=== PATIENT | male | born 1950 | race Caucasian/White ===

== ENCOUNTER 2016-05-07 09:09 | Day surgery (SDC) | payer OTHER ==
--- NOTE | 2016-04-30 10:07 | PAT Medication Instructions ---
Service Date Apr 30, 2016. Current Home Medication List Amlodipine (Norvasc), 10 MG PO QAM Benazepril (Lotensin), 40 MG PO QAM Glipizide (Glucotrol), 1 TAB PO BID Hydrochlorothiazide (Hctz), 1 TAB PO QAM Simvastatin (Zocor), 1 TAB PO HS Medication Instructions For Your Scheduled Surgery - Hold the following medications the morning of surgery: Benazepril (Lotensin), 40 MG PO QAM Glipizide (Glucotrol), 1 TAB PO BID Hydrochlorothiazide (Hctz), 1 TAB PO QAM - Take the following medications the morning of surgery with a sip of water: Amlodipine (Norvasc), 10 MG PO QAM - Take the following medications as scheduled the night before surgery: Simvastatin (Zocor), 1 TAB PO HS Glipizide (Glucotrol), 1 TAB PO BID If you have any questions please call us at [phone] or [phone] ( [place]) or [phone]
[2016-04-30 11:10] LABS: HEMATOCRIT 43.9 % (42-52); MEAN CELL VOLUME 82.8 fL (80-100); MEAN CORPUSCULAR HEMOGLOBIN 29.2 pg (25-34); MEAN CORPUSCULAR HGB CONC 35.3 g/dl (32-36); MEAN PLATELET VOLUME 9.7 fL (7.4-10.4); PLATELET COUNT 213 K/uL (130-400); WHITE BLOOD COUNT 11.96 K/uL (4.8-10.8)
[2016-04-30 11:19] LABS: BLOOD UREA NITROGEN 16 mg/dl (7-18); BUN/CREATININE RATIO 14.5 (10-20); CALCIUM 9.4 mg/dl (8.5-10.1); CARBON DIOXIDE 26 mmol/L (21-32); CHLORIDE 104 mmol/L (98-107); GLUCOSE 149 mg/dl (70-99); POTASSIUM 3.5 mmol/L (3.5-5.1); SODIUM 141 mmol/L (136-145)
[2016-04-30 11:44] LABS: BASO % 0.7 %; BASO ABS # 0.08 K/uL (0-0.2); COMPLETE YES; EOS % 1.6 %; IG% 0.6 %; LYMPH % 21.1 %; LYMPH ABS # 2.52 K/uL (1.2-3.4)
[2016-05-05 09:56] VITALS: BMI 36.0
[2016-05-06 16:21] VITALS: BMI 36.0
[~2016-05-07] VITALS: Ht 170.2 cm; Wt 104.3 kg
[~2016-05-07 09:09] MED LIST: AMLO-114 PO; ATROPINE SULFATE 0.1 MG/ML 5ML SYR IV PRN; BENA1TAB19 PO; EpHEDrine SULFATE INJ 50 MG/ML AMP IV PRN; FENTANYL CITRATE INJ 50 MCG/1 ML 2 ML VIAL IV PRN; GLIP5TAB11 PO; HYDR25TA4 PO; LACTATED RINGER'S 1000ML 1,000 ML IV SCH; SIMV20TA2 PO
[2016-05-07 09:49] VITALS: BP 168/70; PULSE 84; TEMP 36.5; O2SAT 96; Ht 170.2 cm; Wt 104.3 kg
[2016-05-07] MEDS ORDERED: LIDOCAINE HCL 2% 2 ML VIAL (20MG/ML) ONE (10:32)
[2016-05-07] MEDS ORDERED: MIDAZOLAM HCL 1 MG/ML 2ML VIAL ONE (10:32)
[2016-05-07] MEDS ORDERED: DEXAMETHASONE SOD INJ 4 MG/ML VIAL ONE ×2 (10:32→12:49)
[2016-05-07] MEDS ORDERED: ONDANSETRON INJ 2 MG/ML 2 ML VIAL ONE ×2 (10:32→12:49)
[2016-05-07] MEDS ORDERED: PROPOFOL IV EMULSION 10 MG/ML 20 ML VIAL IV ONE ×2 (10:32→12:48)
[2016-05-07] MEDS ORDERED: FENTANYL CITRATE INJ 50 MCG/1 ML 2 ML VIAL ONE (10:33)
[2016-05-07] MEDS ORDERED: NEOMYCIN/POLYMYX/BACITR OINT 15 GM TUBE ONE (10:34)
--- NOTE | 2016-05-07 11:11 | History & Physical Bridge Note ---
H&P Re-Evaluation Bridge Note: I have examined the patient, reviewed the History & Physical and in the interval since the performance of the History & Physical I have noted the following changes of clinical significance: No changes noted
[2016-05-07] MEDS ORDERED: SODIUM CHLORIDE 0.9% PF 50 ML VIAL ONE (11:39)
[2016-05-07] MEDS ORDERED: ROCURONIUM BROMIDE 10 MG/ML 5 ML VIAL ONE (12:49)
[2016-05-07] MEDS ORDERED: ESMOLOL HCL 10 MG/ML 10 ML VIAL ONE (12:49)
--- NOTE | 2016-05-07 13:42 | DIAGNOSTIC IMAGING REPORT ---
PELVIS 1 OR 2 VIEWS ROUTINE CLINICAL HISTORY: PLACEMENT OF FIDUCIAL MARKERS COMPARISON STUDY: None. FINDINGS: Fluoroscopy provided for placement of fiducial markers within the pelvis. Total fluoroscopy time was 3 seconds. 2 fluoroscopic spot images submitted. IMPRESSION: Fluoroscopy provided for placement of fiducial markers within the pelvis. Electronically signed by: Umberto Lenz M.D. 05/07/2016 1:41 PM Dictated Date/Time: 05/07/2016 1:41 PM
--- NOTE | 2016-05-07 13:45 | Anesthesiology Progress Note ---
Anesthesia Post Op Note Date & Time May 07, 2016 at 13:45 Vital Signs Pain Intensity: 0 Vital Signs Past 12 Hours Date Time Temp Pulse Resp B/P Pulse Ox O2 Delivery O2 Flow Rate FiO2 05/07/16 13:35 72 20 139/68 97 Mask 10 05/07/16 13:25 74 20 151/70 98 Mask 10 05/07/16 13:17 36.3 72 20 165/75 97 Mask 10 05/07/16 09:49 36.5 84 20 168/70 96 Room Air Notes Mental Status: alert / awake / arousable, participated in evaluation Pt Amnestic to Procedure: Yes Nausea / Vomiting: adequately controlled Pain: adequately controlled Airway Patency, RR, SpO2: stable & adequate BP & HR: stable & adequate Hydration State: stable & adequate Anesthetic Complications: no major complications apparent
[2016-05-07 14:00] VITALS: BP 153/69; PULSE 70; TEMP 36.7; O2SAT 96
[2016-05-07] MEDS ORDERED: ONDANSETRON INJ 2 MG/ML 2 ML VIAL IV PRN (14:00)
--- NOTE | 2016-05-07 14:06 | Discharge Instructions ---
Discharge Instructions Date of Service May 07, 2016. Admission Reason for Admission: Prostate Cancer Discharge Discharge Diagnosis / Problem: s/p placement of gold fiducial markers, SpaceOAR Hydrogel Spacer Discharge Goals Goal(s): Decrease discomfort, Improve function Activity Recommendations Activity Limitations: resume your previous activity Lifting Limitations: none Exercise/Sports Limitations: none May Resume Sexual Activity: when tolerated Shower/Bathe: no limitations Driving or Machine Use: no limitations . Instructions / Follow-Up Instructions / Follow-Up Radiation Oncology office will call you with your next appointment for your CT Simulation. Please call our department with any questions or concerns. Discharge Diet Recommended Diet: Regular Diet Fluid Restriction: None Procedures Procedures Performed: Placement of Space OAR Hydrogel and Insertion of Fiducial Markers Pending Studies Studies pending at discharge: no Medical Emergencies . Who to Call and When: Medical Emergencies: If at any time you feel your situation is an emergency, please call 911 immediately. . Non-Emergent Contact Non-Emergency issues call your: Primary Care Provider Call Non-Emergent contact if: you have a fever, your pain is not controlled, your pain is worsening, your pain is unusual for you, your pain is concerning you, wound has increased drainage, wound has increased redness, wound has increased pain . . "Provider Documentation" section prepared by Javed Arroyo. VTE Core Measure Inpt VTE Proph given/why not?: Treatment not indicated [place] Drug Monitoring Program Search Results: no issues identified
[2016-05-07 14:30] VITALS: BP 150/80; PULSE 80; TEMP 36.5; O2SAT 96
--- NOTE | 2016-05-11 11:22 | [facility] Operative Report ---
Operative Report Operative Date May 07, 2016. Pre-Operative Diagnosis Prostate Adenocarcinoma Post-Operative Diagnosis Prostate Adenocarcinoma Procedure(s) Performed 1. Gold fiducial marker placement into prostate gland - transperineal 2. Placement of hydrogel spacer anterior to rectum - tranperineal Surgeon Dr Angelica Arroyo Hair Machine Operator Surgeon(s) Dr. Tena Estimated Blood Loss 0ML Findings Prostate gland, bladder, rectal wall were well visualized by ultrasound. Entire exam was within normal limits and no abnormalities noted. Anesthesia General Complication(s) None Disposition Recovery Room / PACU Description of Procedure Madan Cannon was correctly identified and was brought to the surgery suite. His identity was independently verified by checking his name and date of as written on his wrist band. After the timeout procedure the appropriate level of anesthetic induction was carried out and the patient was placed in the lithotomy position. The patients scrotum was taped up and the implant area was cleansed. The stepper was attached to the bed and secured. The ultrasound probe and template were attached to the stepper and was positioned appropriately. The ultrasound probe was then gently inserted into the rectum to ensure adequate imaging of the prostate gland. The template was attached to the stepper to guide for needle placement. Fine adjustments were made until the individual slices taken at 5 mm thickness were identified. Three pre-loaded needles were then placed in the periphery around the gland. The position of each needle was captured under ultrasound prior to placement of each gold fiducial markers. They were placed systemically to optimize their function during image guided radiation therapy. Fluoroscopy was then utilized to confirm proper placement of the 3 gold fiducial markers. We then turned our attention to the placement of the SpaceOAR Hydrogel. Initially, we did set up the injection system for the SpaceOAR hydrogel on the prep table. We then attached a long spinal needle to a 10 cc syringe with normal saline. The needle was then inserted into the perineum anterior to the anal verge under ultrasound guidance. The needle was slowly advanced and then we penetrated denonvilliers fascia under ultrasound guidance. The tissue plane was hydrodissected to confirm the proper position of the needle. After confirming proper needle placement, we reviewed the needle position and confirmed it was midline by viewing the ultrasound imaging in both the transverse and sagittal planes. Then we attached the SpaceOAR injection system to the needle and slowly injected the hydrogel over 8 seconds. We then confirmed successful placement of the hydrogel utilizing the ultrasound probe in both the transverse and sagittal positions. The transrectal ultrasound probe was then removed from the rectum and all the needles were counted and confirmed to be removed from the patient. The patient had no significant bleeding. The patient was then successfully extubated from general anesthesia. The patient will be scheduled to come back for CT simulation for treatment planning for external beam radiation therapy within the next 1 to 2 weeks. I attest to the content of the Intraoperative Record and any orders documented therein. Any exceptions are noted below.
--- NOTE | 2016-05-11 11:30 | History and Physical ---
History & Physical Date May 11, 2016. Chief Complaint Prostate cancer History of Present Illness Mr. Cannon is a 66 year old male with prostate cancer who has elected to undergo radiation therapy alone. He has elected for placement of hydrogel spacer anterior to the rectum and placement of gold fiducial markers. Past Medical/Surgical History Past Medical/Surgical History: Diabetes, Osteoporosis, Arthritis, Cancer, High Cholesterol, Hypertension Specify Any Cancer Diagnosis: - prostate cancer Other Pertinent Information: - broke a couple of fingers in the service - lumbar disc disorder Additional History Hepatic Disease: No Endocrine Disorder: No Kidney Disease: No Hypertension: Yes Heart Disease: No Bleeding Tendencies: No Infectious Diseases: No Other: Diabetes, Osteoporosis Allergies Coded Allergies: No Known Allergies (Unverified , 05/07/16) Home Medications Scheduled Amlodipine (Norvasc), 10 MG PO QAM Benazepril (Lotensin), 40 MG PO QAM Glipizide (Glucotrol), 1 TAB PO BID Hydrochlorothiazide (Hctz), 1 TAB PO QAM Simvastatin (Zocor), 1 TAB PO HS Physical Examination Skin: warm/dry Eyes: normal inspection, EOMI, sclerae normal ENT: normal ENT inspection, pharynx normal Head: normocephalic, atraumatic Neck: supple, no adenopathy, trachea midline Respiratory/Chest: lungs clear, normal breath sounds, no respiratory distress Cardiovascular: regular rate, rhythm, no edema, no murmur Abdomen / GI: normal bowel sounds, non tender Back: normal inspection Extremities: normal inspection, normal range of motion Neurologic/Psych: no motor/sensory deficits, alert, normal reflexes, oriented x 3 Diagnosis Prostate Cancer Plan of Treatment 1. Placement of gold fiducial markers into prostate gland for radiation therapy 2. Placement of hydrogel spacer anterior to rectal wall.
[2016-05-31] MEDS ORDERED: potassium (18:57)
[2016-06-28] MEDS ORDERED: FLM4 (17:27)
== END 2016-05-07 14:45 | disposition home or self-care (01) ==
LOC: C.ACU 09:09
PROVIDERS: ATTEND Radiology Radiation Oncology
DX: C61 Malignant neoplasm of prostate (principal); M51.86 Other intervertebral disc disorders, lumbar region; E11.9 Type 2 diabetes mellitus without complications; M81.0 Age-related osteoporosis without current pathological fracture; E78.00 Pure hypercholesterolemia, unspecified; I10 Essential (primary) hypertension
CPT/HCPCS: 0438T; 55876

== ENCOUNTER → 2016-05-21 | Outpatient (CLI) | payer OTHER ==
[~2016-05-21] MED LIST changes: -ATROPINE SULFATE 0.1 MG/ML 5ML SYR IV PRN; -BENA1TAB19 PO; +BENA1TAB53 PO; -EpHEDrine SULFATE INJ 50 MG/ML AMP IV PRN; -FENTANYL CITRATE INJ 50 MCG/1 ML 2 ML VIAL IV PRN; +FLM4; -LACTATED RINGER'S 1000ML 1,000 ML IV SCH; +potassium
--- NOTE | 2016-05-21 12:52 | DIAGNOSTIC IMAGING REPORT ---
PELVIS WITHOUT CONTRAST (MRI) CLINICAL HISTORY: PROSTATE CA, *SPACEOAR* COMPARISON STUDY: No previous studies for comparison. TECHNIQUE: Utilizing 1.5 [place] magnet and dedicated coil, multiplanar, multiecho imaging of the pelvis with specific attention to the rectum and prostate was performed in the sagittal and axial planes without IV contrast. FINDINGS: The prostate is moderately enlarged, measuring 5.8 x 4.9 x 5.8 cm. There is diminished T2 signal within the left aspect of the peripheral zone. This could reflect the known primary malignancy. No extracapsular extension is present. No involvement of the seminal vesicles is noted by MRI. There is no lymphadenopathy within visualized portions of the pelvis. No suspicious marrow replacement is present. Note is made of a 3.5 x 1.7 x 4.2 cm T2 hyperintense focus located between the anterior prostate and posterior rectum. This is just to the right of midline. This material separates this portion of the rectum and the prostate at the level of the mid rectum. The rectum contacts the prostate gland more inferiorly. IMPRESSION: 1. 3.5 x 1.7 x 4.2 cm T2 hyperintense focus located between the anterior rectum and posterior prostate consistent with hydrogel. The material is along the anterior and right anterior aspect of the mid rectum. This separates the mid rectum from the prostate. The inferior rectum abuts the prostate. 2. T2 hypointensity within left aspect of the peripheral zone which may reflect the known malignancy. 3. Moderate prostatic enlargement. Electronically signed by: Blane Blancas M.D. 05/21/2016 12:51 PM Dictated Date/Time: 05/21/2016 8:57 AM
== END | disposition home or self-care (01) ==
LOC: C.MRI 06:39
PROVIDERS: ATTEND Radiology Radiation Oncology
DX: C61 Malignant neoplasm of prostate (principal)

== ENCOUNTER → 2016-08-12 | Outpatient (CLI) | payer OTHER ==
[~2016-08-12] MED LIST changes: +BENA1TAB19 PO; -BENA1TAB53 PO; -FLM4
[2016-08-12 14:51] VITALS: BP 149/76; PULSE 74; TEMP 37; O2SAT 96
--- NOTE | 2016-08-12 16:43 | Radiation Oncology Follow-Up ---
Radiation Oncology Follow-Up Date of Visit Aug 12, 2016. (Miya Lopez PA-C) Reason For Visit One-month follow-up and cancer survivorship care plan (Miya Lopez PA-C) Radiation Completion Date 07/07/16 (Miya Lopez PA-C) Diagnosis (1) Prostate cancer Status: Acute Onset Date: 03/15/2016 Location: left lobe of the prostate Histology Subtype: adenocarcinoma Stage: ll Permanent Comment: Urinary tract infection and abnormal digital rectal examination, pretreatment Pretreatment PSA 8.62 Status post ultrasound-guided biopsies 03/15/2016 Adenocarcinoma López 3+3 and 3+4(component of 4 minute) Prostate volume 80.5 Prostate density 0.1 Last Edited By: Miya Lopez on Apr 08, 2016 10:39 (Miya Lopez PA-C) History of Present Illness Mr. Cannon is a 66-year-old gentleman who previously presented with an elevated PSA of 6.29 in February 2014. His PSA did rise to 15.98 on 07/11/2015 and he was treated with antibiotics and his PSA subsequently decreased to 8.62 on 11/16. Due to the fact that the patient had an elevated PSA, he did have a digital rectal exam which did reveal several concerning nodules in the prostate gland bilaterally. The patient was subsequently referred to Dr. Oralia Bravo and she was able to palpate a nodule on the right prostate gland. She did recommend a transrectal ultrasound-guided biopsy which was completed on . At the time of the procedure, Dr. Bravo measured the prostate gland to be 80.5 cc. The pathology revealed prostate adenocarcinoma and 4/13 cores. Prostate adenocarcinoma was noted in the left lateral base, left base, left lateral mid and left mid. The highest Denio score was Denio 3+4 and the microscopic report noted that the component of López [address] Bravo discuss treatment options and advise against surgery due to the patient' s other comorbidities and recommended consideration of radiation therapy. We are now seeing the patient in consultation discussed role of radiation therapy. Overall, the patient is doing relatively well. His urinary IPSS score is 0/35. He does have some difficulty with sexual function overall but is not very concerned about it. He doesn't take any medications for his potency. His take any medications for his urinary symptoms. He denies any blood per rectum or history of inflammatory bowel disease. With reviewing his pathology it was felt that he was a candidate for hypo- fractionation. He completed radiation therapy 07/07/2016. He received 7000 cGy. (Miya Lopez PA-C) Interim History He's been doing well over this past month. He denies difficulty with urination. He gave an AUA score of 0. He completed expanded prostate cancer index composite for clinical practice and gave a score of 0 of 12 and urinary incontinence symptoms. He gave a score of 0 of 12 and urinary irritation symptoms. He gave a score of 0 of 12 and bowel symptoms. He did not complete the sexual symptom questions. He has impotence and he had this prior to radiation. He gave a score of 0 of 12 in hormonal vitality symptoms. His total was 0 of 48. He has energy levels are good. (Miya Lopez PA-C) Allergies Coded Allergies: No Known Allergies (Unverified , 05/07/16) Home Medications Scheduled Amlodipine (Norvasc), 10 MG PO QAM Benazepril (Lotensin), 40 MG PO QAM Glipizide (Glucotrol), 1 TAB PO BID Hydrochlorothiazide (Hctz), 1 TAB PO QAM Simvastatin (Zocor), 1 TAB PO HS [potassium], 1 TAB BID Review of Systems Gastrointestinal: Symptoms: WNL Oral: Symptoms: No Problems Respiratory: Symptoms: WNL Urinary: Symptoms: WNL Comments: See AUA & EPIC Skin: Symptoms: No Problems Additional Notes: He completed a distress management report and answered "no" to all questions. (Miya Lopez PA-C) Physical Exam Vital Signs Date Time Temp Pulse Resp B/P (MAP) Pulse Ox O2 Delivery O2 Flow Rate FiO2 08/12/16 14:51 37.0 74 16 149/76 96 Fatigue: None General Appearance: no apparent distress Eyes: normal inspection, EOMI ENT: normal ENT inspection, hearing grossly normal Neck: no adenopathy, thyroid normal Respiratory/Chest: lungs clear, no respiratory distress, no accessory muscle use Cardiovascular: regular rate, rhythm, no gallop, no murmur Abdomen: non tender, soft, no organomegaly Extremities: no pedal edema Neurologic/Psychiatric: no motor/sensory deficits, alert, normal mood/affect Skin: warm/dry (Miya Lopez PA-C) Laboratory Studies Test 06/21/16 17:45 08/12/16 15:12 Urine Color YELLOW Urine Appearance CLEAR (CLEAR) Urine pH 5.0 (4.5-7.5) Urine Specific [place] 1.016 (1.000-1.030) Urine Protein NEG (NEG) Urine Glucose (UA) NEG (NEG) Urine Ketones NEG (NEG) Urine Occult Blood TRACE (NEG) Urine Nitrite NEG (NEG) Urine Bilirubin NEG (NEG) Urine Urobilinogen NEG (NEG) Urine Leukocyte Esterase NEG (NEG) Urine WBC (Auto) 1-5 /hpf (0-5) Urine RBC (Auto) 0-4 /hpf (0-4) Urine Hyaline Casts (Auto) 0 /lpf (0-5) Urine Epithelial Cells (Auto) 0-5 /lpf (0-5) Urine Bacteria (Auto) NEG (NEG) (Miya Lopez PA-C) Assessment & Plan Plan: The patient was also seen today by Dr. Arroyo. PSA was drawn. Unfortunately we heard from the lab that this was mistakenly ran as a potassium. This was low at 3.0. The patient will be notified. He does take a diuretic and is on potassium. We will review his medications to make sure he is taking his potassium. He will need to have a PSA drawn. We will give him an order to have this performed either at our office or in office closer to his home. Today we completed a cancer survivorship care plan. A copy of the document was given to the patient. He has a recheck appointment scheduled to see Dr. Bravo on 11/02/2016. We asked him to return to our office in 6 months. He may call if he has any questions or concerns in the interim. (Miya Lopez PA-C) I agree with note created by Miya Lopez PA-C. I reviewed the patient's chart and information with her. I have examined and evaluated the patient. I reviewed relevant clinical information and answered the patient's and/or family' s questions. (Veeral. Arroyo MD) Total Time In Follow-Up I spent 20 minutes speaking to the patient and performing examination. I spent 20 minutes reviewing information, preparing the survivorship document, and completing this note. (Miya Lopez PA-C) I spent 15 minutes examining and counseling the patient. (Veeral. Arroyo MD) Copy To Angel Priest D.O.; Denny Figueroa; Oralia Bravo MD
== END | disposition home or self-care (01) ==
LOC: C.ONC 14:21
PROVIDERS: ATTEND Physician Assistant Medical
DX: Z08 Encounter for follow-up examination after completed treatment for malignant neoplasm (principal); Z92.3 Personal history of irradiation; Z85.46 Personal history of malignant neoplasm of prostate